=== PATIENT | female | born 1965 | race Caucasian/White ===

== ENCOUNTER 2016-10-24 09:35 | Day surgery (SDC) | payer OTHER ==
[~2016-10-24] VITALS: Ht 170.2 cm; Wt 124.7 kg
[2016-10-24] MEDS ORDERED: VOLTAREN75 MG PO (10:51)
[2016-10-24] MEDS ORDERED: GLUCOPHAGE500 MG PO (10:51)
[2016-10-24] MEDS ORDERED: PROZAC20 MG PO (10:53)
[2016-10-24] MEDS ORDERED: DEPAKOTE250 MG PO (10:53)
[2016-10-24] MEDS ORDERED: VITAMIN D31000 UNIT PO (10:54)
[2016-10-24 11:03] VITALS: BP 124/70; Ht 170.2 cm; Wt 124.7 kg
[2016-10-24 11:25] LABS: HEMATOCRIT 38.1 % (36.0-48.0); HEMOGLOBIN 12.2 g/dL (12-16); MCH 28.6 pg (26.0-34.0); MCV 89.2 fL (80.0-100.0); MEAN PLATELET VOLUME 12.1 fL (7.4-10.4); RBC 4.27 10x6/uL (4.00-5.40); RDW 13.8 % (11.5-14.5); WBC 7.6 10x3/uL (4.8-10.8)
[2016-10-24 11:34] LABS: CALC OSMOLALITY 275 mosm/kg (275-300); CALCIUM 8.5 mg/dL (8.5-10.1); CARBON DIOXIDE 28.1 mmol/L (21.0-32.0); CHLORIDE - SERUM 103 mmol/L (98-107); CREATININE - SERUM 0.7 mg/dL (0.6-1.3); GLUCOSE 89 mg/dL (74-106); POTASSIUM - SERUM 3.7 mmol/L (3.5-5.1); SODIUM 139 mmol/L (136-145); UREA NITROGEN 10 mg/dL (7-18); eGFR NON AFRICAN AMERICAN > 90 mL/min (90-120)
--- NOTE | 2016-10-24 13:10 | NUR ---
DISCHARGE INSTRUCTIONS REVIEWED WITH PATIENT, DISCHARGED HOME VIA WHEELCHAIR TO PRIVATE VEHICLE WITH PATIENT'S MOTHER
--- NOTE | 2016-10-25 10:50 | OP ---
PATIENT NAME: CRISTHIAN LOVE MEDICAL RECORD: [id number] :63 LOCATION:[facility] ADMISSION DATE: SURGEON: JANICE GRIMM DO DATE OF OPERATION: 10/24/2016 PROCEDURE: Colonoscopy with biopsies. SCOPE: Olympus video pediatric colonoscope. MEDICATIONS: Propofol 210 mg IV per anesthesia. INDICATIONS FOR PROCEDURE: Generalized abdominal pain, diarrhea, hematochezia, nausea. FINDINGS: Informed consent was given. The patient was made comfortable with the above medication. After reaching adequate level of sedation by slow IV push, the patient was placed on her left side. A digital rectal examinations was performed and visualized a single external hemorrhoid, which was small and nonbleeding. The endoscope was then advanced under direct visualization through the rectum to the terminal ileum. The scope was slowly withdrawn. The mucosa was carefully examined. There was a single, benign appearing sessile polyp located in the rectum, which was removed with cold forceps. The polyp was completely removed and retrieved. There was very mild diverticulosis involving the sigmoid colon. The remainder of the examination was within normal limits. Random biopsies were taken on the right side of the colon to rule out microscopic colitis. The scope was withdrawn from the patient. The patient tolerated the procedure well and there were no complications. ESTIMATED BLOOD LOSS: Less than 3 cc. WITHDRAWAL TIME: 8 minutes. IMPRESSION: 1. External hemorrhoids, which were small and nonbleeding. 2. A single rectal polyp removed with cold forceps. 3. Diverticulosis. PLAN AND RECOMMENDATIONS: 1. Discharge home when recovery parameters are met. 2. Start a high fiber diet. 3. Continue current medications. 4. Follow up biopsy specimen results. 5. Recall colonoscopy will be dependent on results of polyp that was removed. 6. Trial of Bentyl 10 mg 1-2 tablets twice daily as needed for abdominal pain or loose stools. TRANSINT:[id number] Voice Confirmation ID: [id number] DOCUMENT ID: [id number] OPERATIVE REPORT [id number] CRISTHIAN LOVE JANICE GRIMM DO at 1050 CC: [id number] DICTATION DATE: 10/24/16 1220 FINANCIAL ANALYST ACCOUNTANT: 10/24/16 [id number] [facility] 10/24/16 [place] [address]
== END 2016-10-24 13:10 | disposition home or self-care (01) ==
LOC: D.OPS 09:35
PROVIDERS: Anesthesiology
DX: K62.1 Rectal polyp (principal); K92.1 Melena; R10.9 Unspecified abdominal pain; K64.4 Residual hemorrhoidal skin tags; G47.30 Sleep apnea, unspecified; K21.9 Gastro-esophageal reflux disease without esophagitis; E11.9 Type 2 diabetes mellitus without complications; E66.9 Obesity, unspecified; Z68.41 Body mass index [BMI] 40.0-44.9, adult